=== PATIENT | male | born 1980 | race African-American/Black ===

== ENCOUNTER 2017-10-22 17:58 | Emergency (ER) | payer OTHER ==
[~2017-10-22] VITALS: Ht 172.7 cm; Wt 88.9 kg
[~2017-10-22 17:58] MED LIST: ALBUTEROL SULF8.5 GM INH; AUGMENTIN 500M500 MG PO; AZITHROMYCIN250 MG ORAL; AZITHROMYCIN250 MG PO; BACTRIM DS TAB1 EAC1 ORAL; BENADRYL25 MG ORAL; CIPRO500 MG PO; CLINDAMYCIN HC150 MG ORAL; COGENTIN2 MG PO; GEODON40 MG PO; HYDROCHLOROTHIA25 MG PO; IBUPROFEN600 MG ORAL; IBUPROFEN600 MG PO; IBUPROFEN800 MG ORAL; KEFLEX500 MG ORAL; METFORMIN HCL500 M1 ORAL; NAPROXEN250 MG ORAL; NORCO 5-325 TA1 EACH ORAL; PENICILLIN V P500 MG PO; PERCOCET 5-3251 EACH ORAL; PREDNISONE50 MG PO; TESSALON PERLE100 M2 ORAL; TRILEPTAL150 MG PO; UNK CHOLESTEROL MED; VICODIN 5-5001 EACH PO; ZITHROMAX250 MG ORAL; [UNRECOGNIZED DRUG - REMARK]
[2017-10-22] MEDS ORDERED: Dicyclomine HCl 10mg/5ml oral soln ORAL ONE (18:15)
[2017-10-22 18:45] VITALS: BP 151/79
[2017-10-22 18:56] LABS: BASOPHILS % (AUTO) 1.8 % (0.0-2.0); EOSINOPHILS % (AUTO) 1.6 % (0.0-3.0); HEMATOCRIT 44.7 % (42.0-52.0); HEMOGLOBIN 14.7 G/DL (14.2-18.0); LYMPHOCYTES % (AUTO) 38.5 % (20.0-45.0); MEAN CORPUSCULAR VOLUME 88 FL (80-99); MONOCYTES % (AUTO) 5.1 % (1.0-10.0); NEUTROPHILS % (AUTO) 53.1 % (45.0-75.0); PLATELET COUNT 242 K/UL (150-450); RED BLOOD COUNT 5.09 M/UL (4.70-6.10); RED CELL DISTRIBUTION WIDTH 11.8 % (11.6-14.8); WHITE BLOOD COUNT 7.1 K/UL (4.8-10.8)
[2017-10-22 18:59] LABS: ANION GAP 7 mmol/L (5-15); BLOOD UREA NITROGEN 7 mg/dL (7-18); CALCIUM 9.3 MG/DL (8.5-10.1); CARBON DIOXIDE 30 MMOL/L (21-32); CHLORIDE 102 MMOL/L (98-107); SODIUM 139 MMOL/L (136-145)
[2017-10-22 19:04] LABS: ALANINE AMINOTRANSFERASE 13 U/L (12-78); ALBUMIN 3.9 G/DL (3.4-5.0); ALBUMIN/GLOBULIN RATIO 1.2 (1.0-2.7); ALKALINE PHOSPHATASE 52 U/L (46-116); ASPARTATE AMINO TRANSFERASE 19 U/L (15-37); BILIRUBIN,TOTAL 0.2 MG/DL (0.2-1.0)
--- NOTE | 2017-10-22 20:02 | Emergency Room Report ---
History of Present Illness General Chief Complaint: General Complaint Source: Patient Present Illness HPI 37-year-old male presents to the emergency department complaining of 10 out of 10 in severity body aches, generalized abdominal pain, lethargy and feeling "dehydrated". Patient states he also has a history of carpal tunnel syndrome in the right hand and that he is experiencing exacerbation of his pain. Patient reports she was given splint in the past however he does not regularly use this as he is not aware . Patient denies subjective fevers, chills, nausea, vomiting, diarrhea or muscle spasms/cramps. Patient reports dark- colored urine with strong odor denies dysuria, hematuria or urinary frequency. Patient denies penile discharge, testicular pain or swelling. Allergies: Coded Allergies: No Known Allergies (Unverified , 06/17/12) Patient History Past Medical History: see triage record Past Surgical History: none Pertinent Family History: none Immunizations: UTD Reviewed Nursing Documentation: PMH: Agreed, PSxH: Agreed Nursing Documentation-PMH Hx Hypertension: Yes Hx Pacemaker: No Hx Asthma: Yes Hx COPD: No Hx Diabetes: Yes Hx Cancer: No Hx Gastrointestinal Problems: No Hx Dialysis: No History Of Psychiatric Problem: Yes - Bipolar; Schizophrenia Hx Neurological Problems: No Hx Cerebrovascular Accident: No Hx Seizures: No Review of Systems All Other Systems: negative except mentioned in HPI Physical Exam Vital Signs Date Time Temp Pulse Resp B/P (MAP) Pulse Ox O2 Delivery O2 Flow Rate FiO2 10/22/17 18:04 98.1 102 16 151/79 96 Room Air Sp02 EP Interpretation: reviewed, normal General Appearance: no apparent distress, alert, GCS 15, non-toxic Head: normocephalic, atraumatic ENT: hearing grossly normal, normal voice Neck: full range of motion Respiratory: lungs clear, normal breath sounds, no respiratory distress, speaking full sentences Cardiovascular #1: regular rate, rhythm, no edema Gastrointestinal: normal bowel sounds, non tender, soft, no peritonitis, no guarding, no rebound Rectal: deferred Genitourinary: normal inspection Musculoskeletal: back normal, gait/station normal, normal range of motion, tender - ttp to the right volar wrist, no obvious deformity, FROM. Neurologic: alert, oriented x3, responsive, motor strength/tone normal, sensory intact, normal gait, speech normal, grossly normal Psychiatric: judgement/insight normal Skin: normal color, no rash, warm/dry, well hydrated Lymphatic: no adenopathy Medical Decision Making PA Attestation Dr. Jimenez is my supervising physician whom pt. management has been discussed with. Diagnostic Impression: Primary Impression: Dehydration, mild Additional Impressions: Hx of carpal tunnel syndrome Marijuana use ER Course 37-year-old male presents to the emergency department complaining of 10 out of 10 in severity body aches, generalized abdominal pain, lethargy and feeling "dehydrated". Patient states he also has a history of carpal tunnel syndrome in the right hand and that he is experiencing exacerbation of his pain. Patient reports she was given splint in the past however he does not regularly use this as he is not aware days. Patient denies subjective fevers, chills, nausea, vomiting, diarrhea or muscle spasms/cramps. Patient reports dark- colored urine with strong odor denies dysuria, hematuria or urinary frequency. Patient denies penile discharge, testicular pain or swelling. Ddx considered but are not limited to GE, colitis, acute appy, SBO, Cyclical Vomiting secondary to THC. Vital signs: pt. is afebrile, H&PE are most consistent with viral syndrome , mild dehydration and drug seeking behavior, no evidence to suggest acute abdomen on physical exam. ORDERS: - 1 Liter NS Bolus -CBC, CMP: unremarkable -UDS:positive for THC ED INTERVENTIONS: -1000 NS iv hydration, -Zofran & Bentyl -I do not identify an emergent condition at this time. With current presentation , pt. is stable for close outpatient follow up and conservative treatment. D/ w pt. to return promptly to ED with worsening or new symptoms.- Pt. (and or responsible constitution party) verbalizes' understanding and agreement with proposed treatment plan.proposed treatment plan. DISCHARGE: At this time pt. is stable for d/c to home. Will provide printed patient care instructions, and any necessary prescriptions. Care plan and follow up instructions have been discussed with the patient prior to discharge. Labs Test 10/22/17 18:28 White Blood Count 7.1 K/UL (4.8-10.8) Red Blood Count 5.09 M/UL (4.70-6.10) Hemoglobin 14.7 G/DL (14.2-18.0) Hematocrit 44.7 % (42.0-52.0) Mean Corpuscular Volume 88 FL (80-99) Mean Corpuscular Hemoglobin 28.8 PG (27.0-31.0) Mean Corpuscular Hemoglobin Concent 32.8 G/DL (32.0-36.0) Red Cell Distribution Width 11.8 % (11.6-14.8) Platelet Count 242 K/UL (150-450) Mean Platelet Volume 6.8 FL (6.5-10.1) Neutrophils (%) (Auto) 53.1 % (45.0-75.0) Lymphocytes (%) (Auto) 38.5 % (20.0-45.0) Monocytes (%) (Auto) 5.1 % (1.0-10.0) Eosinophils (%) (Auto) 1.6 % (0.0-3.0) Basophils (%) (Auto) 1.8 % (0.0-2.0) Sodium Level 139 MMOL/L (136-145) Potassium Level 4.0 MMOL/L (3.5-5.1) Chloride Level 102 MMOL/L (98-107) Carbon Dioxide Level 30 MMOL/L (21-32) Anion Gap 7 mmol/L (5-15) Blood Urea Nitrogen 7 mg/dL (7-18) Creatinine 1.0 MG/DL (0.55-1.30) Estimat Glomerular Filtration Rate > 60 mL/min (>60) Glucose Level 83 MG/DL (74-106) Calcium Level 9.3 MG/DL (8.5-10.1) Total Bilirubin 0.2 MG/DL (0.2-1.0) Aspartate Amino Transf (AST/SGOT) 19 U/L (15-37) Alanine Aminotransferase (ALT/SGPT) 13 U/L (12-78) Alkaline Phosphatase 52 U/L (46-116) Total Protein 7.1 G/DL (6.4-8.2) Albumin 3.9 G/DL (3.4-5.0) Globulin 3.2 g/dL Albumin/Globulin Ratio 1.2 (1.0-2.7) Lipase 139 U/L (73-393) Urine Opiates Screen Negative (NEGATIVE) Urine Barbiturates Screen Negative (NEGATIVE) Phencyclidine (PCP) Screen Negative (NEGATIVE) Urine Amphetamines Screen Negative (NEGATIVE) Urine Benzodiazepines Screen Negative (NEGATIVE) Urine Cocaine Screen Negative (NEGATIVE) Urine Marijuana (THC) Screen Positive (NEGATIVE) Last Vital Signs Date Time Temp Pulse Resp B/P (MAP) Pulse Ox O2 Delivery O2 Flow Rate FiO2 10/22/17 18:45 98.1 16 151/79 96 Room Air 10/22/17 18:04 102 Disposition: HOME, SELF-CARE Condition: Stable Scripts Ibuprofen* (MOTRIN*) 600 Mg Tablet 600 MG ORAL THREE TIMES A DAY, #30 TAB 0 Refills Prov: Adrienne Jean Baptiste 10/22/17 Patient Instructions: Medical Screening Exam Additional Instructions: Take medications as directed. Follow up with a Primary Care Provider in 3-5 days, even if your symptoms have resolved. --Please review list of primary care clinics, if you do not already have a primary care provider Return sooner to ED if new symptoms occur, or current symptoms become worse. - Please note that this Emergency Department Report was dictated using [employer] construction inspector technology software, occasionally this can lead to erroneous entry secondary to interpretation by the dictation equipment. Adrienne Jean Baptiste Oct 22, 2017 20:02
[2017-10-22] MEDS ORDERED: IBUPROFEN600 MG ORAL (20:11)
[2017-10-22 20:30] VITALS: BP 151/79
== END 2017-10-22 20:30 | disposition home or self-care (01) ==
LOC: EMR 18:38
DX: E86.0 Dehydration (principal); F12.10 Cannabis abuse, uncomplicated; E11.9 Type 2 diabetes mellitus without complications; I10 Essential (primary) hypertension; F31.9 Bipolar disorder, unspecified; F20.9 Schizophrenia, unspecified; J45.909 Unspecified asthma, uncomplicated; G56.01 Carpal tunnel syndrome, right upper limb
CPT/HCPCS: 36415; 80053; 80307; 83690; 85025; 96361; 96374; 99284; J2405

== ENCOUNTER 2018-09-29 05:02 | Emergency (ER) | payer SELFPAY ==
[~2018-09-29] VITALS: Ht 172.7 cm; Wt 88.5 kg
--- NOTE | 2018-09-29 05:15 | NUR ---
ED Nurse Note: Patient walk in from home c/o runny nose and chest congestion for 3x days. Patient reports slight difficulty breathing. AO4. NAD. VSS. Denies pain. Attached to monitor.
[2018-09-29 05:25] VITALS: BP 133/97
[2018-09-29] MEDS ORDERED: PREDNISONE20 MG ORAL (05:30)
[2018-09-29] MEDS ORDERED: ALBUTEROL SULF8.5 GM INH (05:30)
[2018-09-29] MEDS ORDERED: Albuterol/Ipratropium 3ml neb HHN ONE (05:30)
--- NOTE | 2018-09-29 05:30 | Emergency Room Report ---
History of Present Illness General Chief Complaint: Flu Like Symptoms Source: Patient Present Illness HPI Is a 38-year-old male with a history of asthma but not on breathing treatment. He presents with a cough and congestion for last 3 days. Worse tonight. Worse with lying flat. Worse with coughing. Coughing is nonproductive in nature. [place] short of breath. Unable to sleep because of it. Allergies: Coded Allergies: No Known Allergies (Unverified , 06/17/12) Patient History Past Medical History: see triage record, old chart reviewed, asthma Past Surgical History: none Pertinent Family History: none Social History: Reports: smoking Immunizations: other Reviewed Nursing Documentation: PMH: Agreed; PSxH: Agreed Nursing Documentation-PMH Past Medical History: No History, Except For Hx Hypertension: Yes Hx Pacemaker: No Hx Asthma: Yes Hx COPD: No Hx Diabetes: Yes - borderline Hx Cancer: No Hx Gastrointestinal Problems: No Hx Dialysis: No History Of Psychiatric Problem: Yes - bipolar, schizophrenic Hx Neurological Problems: No Hx Cerebrovascular Accident: No Hx Seizures: No Review of Systems Eye: Denies: eye pain, blurred vision ENT: Denies: ear pain, nose congestion, throat swelling Respiratory: Reports: cough, shortness of breath Cardiovascular: Denies: chest pain, palpitations Gastrointestinal: Denies: abdominal pain, diarrhea, nausea, vomiting Musculoskeletal: Denies: back pain, joint pain Skin: Denies: rash Neurological: Denies: headache, numbness Endocrine: Denies: increased thirst, increased urine Hematologic/Lymphatic: Denies: easy bruising All Other Systems: negative except mentioned in HPI Physical Exam Vital Signs Date Time Temp Pulse Resp B/P (MAP) Pulse Ox O2 Delivery O2 Flow Rate FiO2 09/29/18 05:13 98.2 89 16 133/97 92 Room Air vitals with hypoxia Sp02 EP Interpretation: abnormal General Appearance: well appearing, no apparent distress, alert Head: normocephalic, atraumatic Eyes: bilateral eye PERRL, bilateral eye EOMI ENT: hearing grossly normal, normal pharynx Neck: full range of motion, supple, no meningismus Respiratory: chest non-tender, wheezing Cardiovascular #1: regular rate, rhythm, no murmur Gastrointestinal: normal bowel sounds, non tender, no mass, no organomegaly, no bruit, non-distended Musculoskeletal: back normal, gait/station normal, normal range of motion Psychiatric: mood/affect normal Skin: warm/dry Medical Decision Making Diagnostic Impression: Primary Impression: Upper respiratory infection Qualified Codes: J06.9 - Acute upper respiratory infection, unspecified Additional Impression: Asthma exacerbation Qualified Codes: J45.21 - Mild intermittent asthma with (acute) exacerbation ER Course Patient with a viral process or infection complicating his asthma. No evidence of ACS, PE, pneumonia, dissection to name a few. We'll discharge home. Last Vital Signs Date Time Temp Pulse Resp B/P (MAP) Pulse Ox O2 Delivery O2 Flow Rate FiO2 09/29/18 05:25 98.2 88 16 133/97 92 Room Air Status: improved Disposition: HOME, SELF-CARE Condition: Stable Scripts Prednisone* (PREDNISONE*) 20 Mg Tablet 40 MG ORAL DAILY, #8 TAB Prov: Amadeo Delarosa MD 09/29/18 Albuterol Sulfate* (ALBUTEROL SULFATE MDI*) 8.5 Gm Hfa.aer.ad 2 PUFF INH Q4H PRN for cough/wheezing, #1 EA 0 Refills Prov: Amadeo Delarosa MD 09/29/18 Referrals: NOT CHOSEN IPA/,REFERRING (PCP) Additional Instructions: Follow-up with your DrMax in 3-5 days. Stop smoking. Return if worse. Amadeo Delarosa MD Sep 29, 2018 05:30
--- NOTE | 2018-09-29 05:36 | NUR ---
ED Nurse Note: RT at bedside
--- NOTE | 2018-09-29 05:50 | NUR ---
ED Nurse Note: Patient cleared for discharge per ERMD. AO4. NAD. VSS. Patent given prescriptions and discharge instructions; veralized understanding. ID band removed. Patient ambulated out with all personal belongings with steady gait.
[2018-09-29 05:51] VITALS: BP 133/97
== END 2018-09-29 05:50 | disposition home or self-care (01) ==
LOC: EMR 05:28
DX: J06.9 Acute upper respiratory infection, unspecified (principal); J45.21 Mild intermittent asthma with (acute) exacerbation; I10 Essential (primary) hypertension; F31.9 Bipolar disorder, unspecified; F20.9 Schizophrenia, unspecified
CPT/HCPCS: 94640; 94664; 99284; J7512; J7620

== ENCOUNTER 2019-05-16 18:54 | Emergency (ER) | payer OTHER ==
[~2019-05-16] VITALS: Ht 167.6 cm; Wt 89.8 kg
[~2019-05-16 18:54] MED LIST changes: +PREDNISONE20 MG ORAL
[2019-05-16] MEDS ORDERED: UNOBMED (19:01)
[2019-05-16 19:05] VITALS: BP 148/99
--- NOTE | 2019-05-16 19:05 | NUR ---
ED Nurse Note: pt walked in to ED c/o a unknown insect bite to right forearm. Noted redness and swelling. pt states it is tender to touch and itchy at the same time. pt is alert x4. VSS
--- NOTE | 2019-05-16 19:22 | Emergency Room Report ---
History of Present Illness General Chief Complaint: Skin Rash/Abscess Source: Medical Record Present Illness HPI 39-year-old male with history of type 2 diabetes currently controlled with metformin here complaining of pruritus and pain in the right arm x2 days. Patient reports that he was walking in his neighborhood as he felt like something with his right arm. Patient denies nausea and vomiting however complains of chills denies fever. Denies shortness of breath, chest pain, palpitation. Rating the pain in the right arm 3 out of 10 with radiation to left fingers denies tingling and numbness. Has full range of motion. Has not taken medication for pruritus or pain. Cellulitis of the right forearm and right lateral arm noted secondary to insect bite most likely a spider bite. Slightly warm to touch. Patient denies anaphylaxis, chest pain, palpitation, and other associated symptoms. Allergies: Coded Allergies: No Known Allergies (Unverified , 06/17/12) Patient History Past Medical History: see triage record Past Surgical History: unable to obtain Pertinent Family History: none Immunizations: UTD Reviewed Nursing Documentation: PMH: Agreed; PSxH: Agreed Nursing Documentation-PMH Past Medical History: No History, Except For Hx Hypertension: Yes Hx Pacemaker: No Hx Asthma: Yes Hx COPD: No Hx Diabetes: Yes - borderline Hx Cancer: No Hx Gastrointestinal Problems: No Hx Dialysis: No Hx Neurological Problems: No Hx Cerebrovascular Accident: No Hx Seizures: No Review of Systems All Other Systems: negative except mentioned in HPI Physical Exam Vital Signs Date Time Temp Pulse Resp B/P (MAP) Pulse Ox O2 Delivery O2 Flow Rate FiO2 05/16/19 18:58 97.9 66 19 151/99 (116) 99 Room Air Sp02 EP Interpretation: reviewed, normal General Appearance: no apparent distress, alert, GCS 15, non-toxic Head: normocephalic, atraumatic Eyes: bilateral eye normal inspection, bilateral eye PERRL ENT: hearing grossly normal, normal pharynx, no angioedema, normal voice Neck: full range of motion, supple/symm/no masses Respiratory: chest non-tender, lungs clear, normal breath sounds, no wheezing, speaking full sentences Cardiovascular #1: regular rate, rhythm, no edema, no murmur Cardiovascular #2: 2+ radial (R), 2+ radial (L) Gastrointestinal: normal bowel sounds, non tender, soft, non-distended, no guarding, no rebound Rectal: deferred Genitourinary: normal inspection, no CVA tenderness Musculoskeletal: back normal, digits/nails normal, gait/station normal, no calf tenderness, swelling - Right plantar forearm and right lateral arm cellulitis Neurologic: alert, oriented x3, responsive, motor strength/tone normal, sensory intact, speech normal Psychiatric: judgement/insight normal, memory normal, mood/affect normal, no suicidal/homicidal ideation Skin: no rash, warm/dry, other - Cellulitis right arm and right forearm Lymphatic: no adenopathy Medical Decision Making PA Attestation Diagnosis and treatment plans were reviewed and discussed with my supervising physician Dr. Samuels Diagnostic Impression: Primary Impression: Cellulitis of right arm Additional Impression: Insect bite ER Course 39-year-old male with history of type 2 diabetes currently controlled with metformin here complaining of pruritus and pain in the right arm x2 days. Patient reports that he was walking in his neighborhood as he felt like something with his right arm. Patient denies nausea and vomiting however complains of chills denies fever. Denies shortness of breath, chest pain, palpitation. Rating the pain in the right arm 3 out of 10 with radiation to left fingers denies tingling and numbness. Has full range of motion. Has not taken medication for pruritus or pain. Cellulitis of the right forearm and right lateral arm noted secondary to insect bite most likely a spider bite. Slightly warm to touch. Patient denies anaphylaxis, chest pain, palpitation, and other associated symptoms. Ddx considered but are not limited to : Cellulitis,, superficial infection, abscess Vital signs: are WNL, pt. is afebrile H&PE are most consistent with: Cellulitis of right arm secondary to insect bite ORDERS: Keflex, ibuprofen, Benadryl, hydrocortisone cream ED INTERVENTIONS: Keflex, Claritin DISCHARGE: At this time pt. is stable for d/c to home. Will provide printed patient care instructions, and any necessary prescriptions. Care plan and follow up instructions have been discussed with the patient prior to discharge. Patient to follow-up with her primary care provider worsening symptoms, anaphylaxis, fever and chills return to the emergency room Last Vital Signs Date Time Temp Pulse Resp B/P (MAP) Pulse Ox O2 Delivery O2 Flow Rate FiO2 05/16/19 18:58 97.9 66 19 151/99 (116) 99 Room Air Disposition: HOME, SELF-CARE Condition: Stable Scripts Diphenhydramine Hcl* (BENADRYL*) 25 Mg Capsule 25 MG ORAL Q6H PRN for Itching, #21 CAP Prov: Palomo Hansen 05/16/19 Ibuprofen* (MOTRIN*) 600 Mg Tablet 600 MG ORAL Q8H PRN for For Pain, #30 TAB 0 Refills Prov: Palomo Hansen 05/16/19 Hydrocortisone/Aloe Vera 1%* (HYDROCORTISONE-ALOE 1% CREAM*) Y Cr 1 APPLIC TOPIC Q6H PRN for Itching, #30 GM Prov: Palomo Hansen 05/16/19 Cephalexin* (KEFLEX*) 500 Mg Capsule 500 MG ORAL EVERY 6 HOURS for 7 Days, #28 CAP Prov: Palomo Hansen 05/16/19 Patient Instructions: Cellulitis, [id number], Insect Bite, [id number] Additional Instructions: Take medication as directed follow-up with your primary care provider if worsening symptoms return to the emergency room Palomo Hansen May 16, 2019 19:22
[2019-05-16] MEDS ORDERED: IBUPROFEN600 MG ORAL (19:23)
[2019-05-16] MEDS ORDERED: CEPHALEXIN500 MG ORAL (19:23)
[2019-05-16] MEDS ORDERED: BENADRYL25 MG ORAL (19:23)
[2019-05-16] MEDS ORDERED: HYDROCORTISONE-30 GM TOPIC (19:23)
[2019-05-16 19:30] VITALS: BP 144/86
[2019-05-16] MEDS ORDERED: Cephalexin 250mg/5ml Susp 100mL Bottle ORAL ONE (19:30)
--- NOTE | 2019-05-16 19:30 | NUR ---
ER DISCHARGE NOTE: Patient is cleared to be discharged per ERMD, pt is aox4, on room air, with stable vital signs. pt was given dc and prescription instructions, pt was able to verbalize understanding, pt id band removed without complications. pt is able to ambulate with steady gait. pt took all belongings.
== END 2019-05-16 19:30 | disposition home or self-care (01) ==
LOC: EMR 19:18
DX: L03.113 Cellulitis of right upper limb (principal); S40.861A Insect bite (nonvenomous) of right upper arm, initial encounter; J45.909 Unspecified asthma, uncomplicated; I10 Essential (primary) hypertension; Z95.0 Presence of cardiac pacemaker; E11.9 Type 2 diabetes mellitus without complications; Z79.84 Long term (current) use of oral hypoglycemic drugs; W57.XXXA Bitten or stung by nonvenomous insect and other nonvenomous arthropods, initial encounter; Y92.9 Unspecified place or not applicable
CPT/HCPCS: 99282

== ENCOUNTER 2019-07-23 11:54 | Emergency (ER) | payer OTHER ==
[~2019-07-23] VITALS: Ht 167.6 cm; Wt 90.7 kg
[~2019-07-23 11:54] MED LIST changes: +CEPHALEXIN500 MG ORAL; +HYDROCORTISONE-30 GM TOPIC; +UNOBMED
[2019-07-23 11:59] VITALS: BP 134/89
[2019-07-23] MEDS ORDERED: Lidocaine 1% MPF 10mg/ml 5ml INJ ONE (12:15)
[2019-07-23 12:36] LABS: APPEARANCE,URINE CLEAR; BILIRUBIN, URINE NEGATIVE (NEGATIVE); COLOR,URINE YELLOW; GLUCOSE, URINE (UA) NEGATIVE (NEGATIVE); KETONES,URINE NEGATIVE (NEGATIVE); LEUKOCYTE ESTERASE ,URINE 1+ (NEGATIVE); NITRITE,URINE NEGATIVE (NEGATIVE); PH,URINE 7 (4.5-8.0); PROTEIN,URINE NEGATIVE (NEGATIVE); UROBILINOGEN,URINE NORMAL MG/DL (0.0-1.0)
--- NOTE | 2019-07-23 12:36 | Emergency Room Report ---
History of Present Illness General Chief Complaint: Male Urogenital Problems Source: Patient Present Illness HPI 39-year-old male with no significant past medical history here complaining of over a couple months of a white penile discharge with pruritus. Patient reports that he was sexually active with a random sexual partner and does not know whether she was positive for any sexually transmitted diseases. Denies urinary frequency, dysuria, hematuria, fever and chills, pubic pain. Denies scrotal pain. Has not taken medication for symptom relief. Reports that also he has a same discharge coming from the anal region occasionally and did receive anal intercourse. Patient is in no distress. Denies other associated symptoms such as chest pain, shortness of breath, palpitation, fever and chills. Allergies: Coded Allergies: No Known Allergies (Unverified , 06/17/12) Patient History Past Medical History: see triage record Past Surgical History: unable to obtain Pertinent Family History: none Immunizations: UTD Reviewed Nursing Documentation: PMH: Agreed; PSxH: Agreed Nursing Documentation-PMH Hx Hypertension: Yes Hx Pacemaker: No Hx Asthma: Yes Hx COPD: No Hx Diabetes: Yes - borderline Hx Cancer: No Hx Gastrointestinal Problems: No Hx Dialysis: No History Of Psychiatric Problem: Yes Hx Neurological Problems: No Hx Cerebrovascular Accident: No Hx Seizures: No Review of Systems All Other Systems: negative except mentioned in HPI Physical Exam Vital Signs Date Time Temp Pulse Resp B/P (MAP) Pulse Ox O2 Delivery O2 Flow Rate FiO2 07/23/19 11:59 98.1 93 19 134/89 (104) 95 Room Air Sp02 EP Interpretation: reviewed, normal General Appearance: no apparent distress, alert, GCS 15, non-toxic Head: normocephalic, atraumatic Eyes: bilateral eye normal inspection, bilateral eye PERRL ENT: hearing grossly normal, normal pharynx, no angioedema, normal voice Neck: full range of motion, supple/symm/no masses Respiratory: chest non-tender, lungs clear, normal breath sounds, no rhonchi, speaking full sentences Cardiovascular #1: regular rate, rhythm, no edema, no murmur Gastrointestinal: non tender, soft Rectal: deferred Genitourinary: normal inspection, no CVA tenderness Musculoskeletal: back normal, digits/nails normal Neurologic: alert, oriented x3, responsive, motor strength/tone normal, sensory intact, speech normal Psychiatric: judgement/insight normal, memory normal, mood/affect normal, no suicidal/homicidal ideation Skin: no rash Lymphatic: no adenopathy Medical Decision Making PA Attestation All diagnoses and treatment plans were reviewed and discussed with my supervising physician Dr. Alexander Diagnostic Impression: Primary Impression: Penile discharge ER Course 39-year-old male with no significant past medical history here complaining of over a couple months of a white penile discharge with pruritus. Patient reports that he was sexually active with a random sexual partner and does not know whether she was positive for any sexually transmitted diseases. Denies urinary frequency, dysuria, hematuria, fever and chills, pubic pain. Denies scrotal pain. Has not taken medication for symptom relief. Reports that also he has a same discharge coming from the anal region occasionally and did receive anal intercourse. Patient is in no distress. Denies other associated symptoms such as chest pain, shortness of breath, palpitation, fever and chills. Ddx considered but are not limited to: UTI, chlamydia, gonorrhea, fungal infection Vital signs: are WNL, pt. is afebrile H&PE are most consistent with: Penile discharge due to STD exposure ORDERS: UA, fluconazole, doxycycline ED INTERVENTIONS: Rocephin DISCHARGE: At this time pt. is stable for d/c to home. Will provide printed patient care instructions, and any necessary prescriptions. Care plan and follow up instructions have been discussed with the patient prior to discharge. Take medication as directed, follow-up with your primary care physician. If symptoms continue especially anal discharge you need to be swabbed. Patient agrees with prophylactic treatment for chlamydia, gonorrhea, and fungal infection Last Vital Signs Date Time Temp Pulse Resp B/P (MAP) Pulse Ox O2 Delivery O2 Flow Rate FiO2 07/23/19 11:59 98.1 93 19 134/89 (104) 95 Room Air Disposition: HOME, SELF-CARE Condition: Stable Scripts Doxycycline Hyclate (DOXYCYCLINE HYCLATE) 100 Mg Tablet 100 MG PO BID for 7 Days, #14 TAB Prov: Palomo Hansen 07/23/19 Fluconazole (FLUCONAZOLE) 100 Mg Tablet 100 MG ORAL DAILY for 7 Days, #7 TAB 0 Refills Prov: Palomo Hansen 07/23/19 Patient Instructions: Balanitis, Chlamydia, Male, Gonorrhea Additional Instructions: Take medication as directed, follow with your primary care provider for further testing. CAD if worsening symptoms return to the emergency room Palomo Hansen Jul 23, 2019 12:36
--- NOTE | 2019-07-23 12:37 | NUR ---
ED Nurse Note: Pt. AAOx4. Ambulatory. Pt. walked in to ER. Pt. stated that he has been having whitish penile discharge(whitish) for the last 3 months and admitted that he received an oral sex from a random girl within the last 3 months. c/o of itchiness as well
[2019-07-23] MEDS ORDERED: DOXYCYCLINE HY100 M6 PO (12:40)
[2019-07-23] MEDS ORDERED: FLUCONAZOLE100 MG ORAL (12:40)
[2019-07-23 12:46] VITALS: BP 127/80
== END 2019-07-23 12:47 | disposition home or self-care (01) ==
LOC: EMR 12:45
DX: R36.9 Urethral discharge, unspecified (principal); I10 Essential (primary) hypertension; J45.909 Unspecified asthma, uncomplicated; R73.03 Prediabetes
CPT/HCPCS: 81001; 96372; 96374; J0696; Z7502; 99284

== ENCOUNTER 2019-09-06 18:16 | Emergency (ER) | payer OTHER ==
[~2019-09-06] VITALS: Ht 167.6 cm; Wt 86.2 kg
[~2019-09-06 18:16] MED LIST changes: +DOXYCYCLINE HY100 M6 PO; +FLUCONAZOLE100 MG ORAL
[2019-09-06 18:31] VITALS: BP 135/88
[2019-09-06] MEDS ORDERED: AMOXICILLIN500 MG ORAL (18:33)
--- NOTE | 2019-09-06 18:33 | NUR ---
ED Nurse Note: pt walked in c/o throat pain x 4 days ermd eval done awaiting orders.
--- NOTE | 2019-09-06 18:35 | NUR ---
ED Nurse Note: no nsg orders.
--- NOTE | 2019-09-06 18:35 | NUR ---
ED Nurse Note: Pt cleared by health care Provider for discharge. DC instructions/prescription was given and explained to pt and verbalized understanding of teachings. All medical deviecs such as ID band removed. Pt is AAO x4, ambulatory and left with all personal belongings.
[2019-09-06 18:36] VITALS: BP 135/88
--- NOTE | 2019-09-06 18:43 | Emergency Room Report ---
History of Present Illness General Chief Complaint: Sore Throat Source: Patient Present Illness HPI 39 year old complaining of sore throat x4 days. Pain is 7/10, painful to swallow. No aggravating or relieving factors. Denies fever, cough, shortness of breath, stuffy nose, vomiting, diarrhea, abdominal pain. Good appetite. No sick contacts, no recent travel. Took DayQuil without relief. Allergies: Coded Allergies: No Known Allergies (Unverified , 06/17/12) Patient History Past Medical History: DM, HTN, psych hx - bipolar, schizophrenia, other - hyperlipidemia Past Surgical History: none Social History: Reports: smoking - marijuana Nursing Documentation-[facility] Past Medical History: No History, Except For Hx Hypertension: Yes Hx Pacemaker: No Hx Asthma: Yes Hx COPD: No Hx Diabetes: Yes - borderline Hx Cancer: No Hx Gastrointestinal Problems: No Hx Dialysis: No Hx Neurological Problems: No Hx Cerebrovascular Accident: No Hx Seizures: No Review of Systems All Other Systems: negative except mentioned in HPI Physical Exam Vital Signs Date Time Temp Pulse Resp B/P (MAP) Pulse Ox O2 Delivery O2 Flow Rate FiO2 09/06/19 18:20 98.4 105 18 135/88 (104) 98 Room Air Sp02 EP Interpretation: reviewed, normal General Appearance: no apparent distress, alert, GCS 15, non-toxic ENT: normal voice, TMs + canals normal, pharyngeal erythema - , no RESPONDER Respiratory: chest non-tender, lungs clear, normal breath sounds, speaking full sentences Cardiovascular #1: regular rate, rhythm, no edema Musculoskeletal: back normal, normal range of motion, gait/station normal Neurologic: alert, motor strength/tone normal, oriented x3, sensory intact, responsive, speech normal Skin: no rash, warm/dry Medical Decision Making PA Attestation This patient was seen under the direct supervision of Dr. Alexander, who directed all aspects of care and diagnostic interpretation. Diagnostic Impression: Primary Impression: Pharyngitis, acute ER Course ED course HPI: 39 year old complaining of sore throat x4 days. Pain is 7/10, painful to swallow. No aggravating or relieving factors. Denies fever, cough, shortness of breath, stuffy nose, vomiting, diarrhea, abdominal pain. Good appetite. No sick contacts, no recent travel. Took DayQuil without relief. HPI & PE consistent with: Pharyngitis Orders/ Interventions: None. Patient is well-appearing, speaking in full sentences without respiratory distress. No evidence of peritonsillar abscess. Normal voice. Disposition: Take amoxicillin as prescribed. Treat with otc analgesic of choice (ibuprofen or acetaminophen every 6 hrs) as needed for pain or fever 100.4F. Encouraged increased fluid intake & rest, avoid strenuous exercise. Diet modifications: avoid greasy, spicy foods, and dairy products until better. Take medications as directed. Instructed on how to take meds and possible side effects of medication Gargle w/ warm salt water for throat pain, eat soft, easy to swallow foods. At this time pt. is stable for d/c to home. Will provide printed patient care instructions, and any necessary prescriptions. Care plan and follow up instructions have been discussed with the patient prior to discharge. Please note that this Emergency Department Report was dictated using [employer] development technician technology software, occasionally this can lead to erroneous entry secondary to interpretation by the dictation equipment. Last Vital Signs Date Time Temp Pulse Resp B/P (MAP) Pulse Ox O2 Delivery O2 Flow Rate FiO2 09/06/19 18:36 98.4 18 135/88 98 Room Air 09/06/19 18:20 105 Disposition: HOME, SELF-CARE Condition: Stable Scripts Amoxicillin* (AMOXIL*) 500 Mg Capsule 500 MG ORAL EVERY 8 HOURS for 10 Days, #30 CAP Prov: Thania Mason 09/06/19 Referrals: [facility],REFERRING (PCP) Patient Instructions: Pharyngitis, [id number] Additional Instructions: Take medication as Rx. Followup with PCP in 2 days or return to ED if worsening symptoms, new symptoms, or sudden change in condition. Thania Mason Sep 06, 2019 18:43
== END 2019-09-06 18:40 | disposition home or self-care (01) ==
LOC: EMR 18:31
DX: J02.9 Acute pharyngitis, unspecified (principal); I10 Essential (primary) hypertension; J45.909 Unspecified asthma, uncomplicated; R73.03 Prediabetes
CPT/HCPCS: 99282

== ENCOUNTER 2019-09-09 17:26 | Emergency (ER) | payer OTHER ==
[~2019-09-09] VITALS: Ht 167.6 cm; Wt 86.2 kg
[~2019-09-09 17:26] MED LIST changes: +AMOXICILLIN500 MG ORAL
[2019-09-09 17:42] VITALS: BP 113/78
--- NOTE | 2019-09-09 18:06 | Emergency Room Report ---
History of Present Illness General Chief Complaint: Sore Throat Source: Patient Present Illness HPI 39-year-old male with no significant past medical history here complaining of no improvement of sore throat x4 days. Patient was here at [facility] 2 days ago and was prescribed amoxicillin. Patient reports that he started taking it yesterday however does not feel like it is helping his symptoms. Denies drooling, fever and chills, cough and congestion at this time. Reports that has not been taking anything for pain. Rating pain 10 out of 10. Bilateral tonsils swelling and anterior cervical adenopathy noted. Patient also complains of 10 months of penile discharge whenever he is making bowel movement. Patient has been here for the same complaint before multiple times. Patient reports that he finally follow-up with his primary care provider recently, had blood work done and has a follow-up appointment with his primary care provider in 2 weeks. Patient denies any new sexual encounter with new partner. At this time I discussed with the patient that it is best to wait to follow-up with her primary care provider as this is a chronic issue and possible referral to specialist needed. Allergies: Coded Allergies: No Known Allergies (Unverified , 06/17/12) Patient History Past Medical History: see triage record Past Surgical History: unable to obtain Pertinent Family History: none Immunizations: UTD Reviewed Nursing Documentation: PMH: Agreed; PSxH: Agreed Nursing Documentation-PMH Past Medical History: No History, Except For Hx Hypertension: Yes Hx Pacemaker: No Hx Asthma: Yes Hx COPD: No Hx Diabetes: Yes Hx Cancer: No Hx Gastrointestinal Problems: No Hx Dialysis: No Hx Neurological Problems: No Hx Cerebrovascular Accident: No Hx Seizures: No Review of Systems All Other Systems: negative except mentioned in HPI Physical Exam Vital Signs Date Time Temp Pulse Resp B/P (MAP) Pulse Ox O2 Delivery O2 Flow Rate FiO2 09/09/19 17:30 98.4 95 16 120/88 (99) 98 Room Air Sp02 EP Interpretation: reviewed, normal General Appearance: no apparent distress, alert, GCS 15, non-toxic Head: normocephalic, atraumatic Eyes: bilateral eye normal inspection, bilateral eye PERRL ENT: hearing grossly normal, no angioedema, tonsillar swelling, pharyngeal erythema Neck: full range of motion, supple/symm/no masses, other - Anterior cervical lymphadenopathy Respiratory: chest non-tender, lungs clear, normal breath sounds, no rhonchi, no wheezing, speaking full sentences Cardiovascular #1: regular rate, rhythm, no edema, no murmur, normal capillary refill Gastrointestinal: soft, no mass Genitourinary: no CVA tenderness Musculoskeletal: normal range of motion Neurologic: alert, motor strength/tone normal, oriented x3, sensory intact, responsive, speech normal Psychiatric: judgement/insight normal, memory normal, mood/affect normal, no suicidal/homicidal ideation Skin: no rash Lymphatic: adenopathy - Anterior cervical Medical Decision Making PA Attestation All my diagnosis and treatment plans were reviewed ad discussed with my supervising physician Dr. Sorto Diagnostic Impression: Primary Impression: Strep pharyngitis Additional Impression: Penile discharge ER Course 39-year-old male with no significant past medical history here complaining of no improvement of sore throat x4 days. Patient was here at [facility] 2 days ago and was prescribed amoxicillin. Patient reports that he started taking it yesterday however does not feel like it is helping his symptoms. Denies drooling, fever and chills, cough and congestion at this time. Reports that has not been taking anything for pain. Rating pain 10 out of 10. Bilateral tonsils swelling and anterior cervical adenopathy noted. Patient also complains of 10 months of penile discharge whenever he is making bowel movement. Patient has been here for the same complaint before multiple times. Patient reports that he finally follow-up with his primary care provider recently, had blood work done and has a follow-up appointment with his primary care provider in 2 weeks. Patient denies any new sexual encounter with new partner. At this time I discussed with the patient that it is best to wait to follow-up with her primary care provider as this is a chronic issue and possible referral to specialist needed. Ddx considered but are not limited to: strep pharyngitis, URI, tonsillitis, peritonsillar abscess, influneza Vital signs: are WNL, pt. is afebrile H&PE are most consistent with: Strep pharyngitis second encounter, chronic penile discharge ORDERS: Prednisone, Motrin ED INTERVENTIONS: None required at this time. DISCHARGE: At this time pt. is stable for d/c to home. Will provide printed patient care instructions, and any necessary prescriptions. Care plan and follow up instructions have been discussed with the patient prior to discharge. Patient to follow-up with her primary care provider, also finish amoxicillin that was prescribed to him 2 days ago. Patient is concerned of having STD in the mouth, advised patient to finish the medication however if still symptomatic her primary care physician do a throat culture if any suspicion for sexually transmitted diseases in the throat. Last Vital Signs Date Time Temp Pulse Resp B/P (MAP) Pulse Ox O2 Delivery O2 Flow Rate FiO2 09/09/19 17:42 98.6 19 113/78 99 Room Air 09/09/19 17:30 95 Disposition: HOME, SELF-CARE Condition: Stable Scripts Ibuprofen* (MOTRIN*) 600 Mg Tablet 600 MG ORAL THREE TIMES A DAY, #30 TAB 0 Refills Prov: Palomo Hansen 09/09/19 Prednisone* (PREDNISONE*) 10 Mg Tablet 10 MG ORAL BID for 5 Days, #10 TAB 0 Refills Prov: Palomo Hansen 09/09/19 Patient Instructions: Strep Throat Additional Instructions: Finished antibiotics that were given to you 2 days ago, follow-up with your primary care provider regarding your repeated penile discharge as you have a pending lab results an appointment with primary doctor. You have been here repeatedly for the same concern and multiple antibiotics and antifungals have been given and it is best to follow-up with a primary care at this time possible referral to a specialist. Palomo Hansen Sep 09, 2019 18:06
[2019-09-09] MEDS ORDERED: PREDNISONE10 MG ORAL (18:07)
[2019-09-09] MEDS ORDERED: IBUPROFEN600 MG ORAL (18:07)
[2019-09-09 18:12] VITALS: BP 120/78
== END 2019-09-09 18:12 | disposition home or self-care (01) ==
LOC: EMR 18:00
DX: J02.0 Streptococcal pharyngitis (principal); R36.9 Urethral discharge, unspecified; I10 Essential (primary) hypertension; E11.9 Type 2 diabetes mellitus without complications
CPT/HCPCS: 99282

== ENCOUNTER 2019-11-15 18:48 | Emergency (ER) | payer OTHER ==
[~2019-11-15] VITALS: Ht 167.6 cm; Wt 81.6 kg
[~2019-11-15 18:48] MED LIST changes: +PREDNISONE10 MG ORAL
--- NOTE | 2019-11-15 19:15 | NUR ---
ED Nurse Note: PT WALKED IN TO ED FROM HOME C/O ASTHMA EXACERBATION X2DAYS. PT STATES MILD CP AND SOB. 96% RA AT BEDSIDE. VSS, NAD. WILL CONTINUE TO MONITOR PATIENT.
[2019-11-15] MEDS ORDERED: Albuterol/Ipratropium 3ml neb HHN SCH (19:30)
--- NOTE | 2019-11-15 19:35 | NUR ---
ED Nurse Note: xr at bedside
[2019-11-15 19:41] VITALS: BP 132/88
--- NOTE | 2019-11-15 19:46 | NUR ---
ED Nurse Note: rt at bedside with breathing tx
--- NOTE | 2019-11-15 19:53 | Diagnostic Imaging Report ---
EXAM: XR Chest, 1 View CLINICAL HISTORY: SOB TECHNIQUE: Frontal view of the chest. COMPARISON: No relevant prior studies available. FINDINGS: Lungs: Unremarkable. No consolidation. Pleural space: No pleural effusion. No pneumothorax. Heart: Unremarkable. No cardiomegaly. IMPRESSION: No acute cardiopulmonary abnormality.
--- NOTE | 2019-11-15 20:35 | NUR ---
ED Nurse Note: BLOOD DRAWN AND SENT TO LAB
[2019-11-15 21:00] LABS: BASOPHILS % (AUTO) 2.8 % (0.0-2.0); EOSINOPHILS % (AUTO) 0.4 % (0.0-3.0); HEMATOCRIT 41.5 % (42.0-52.0); HEMOGLOBIN 14.2 G/DL (14.2-18.0); LYMPHOCYTES % (AUTO) 18.2 % (20.0-45.0); MEAN CORPUSCULAR VOLUME 86 FL (80-99); MONOCYTES % (AUTO) 5.6 % (1.0-10.0); PLATELET COUNT 196 K/UL (150-450); RED BLOOD COUNT 4.85 M/UL (4.70-6.10); RED CELL DISTRIBUTION WIDTH 11.9 % (11.6-14.8); WHITE BLOOD COUNT 8.5 K/UL (4.8-10.8)
[2019-11-15 21:04] LABS: ANION GAP 16 mmol/L (5-15); BLOOD UREA NITROGEN 12 mg/dL (7-18); CALCIUM 9.3 MG/DL (8.5-10.1); CARBON DIOXIDE 25 MMOL/L (21-32); CHLORIDE 101 MMOL/L (98-107); POTASSIUM 3.5 MMOL/L (3.5-5.1); SODIUM 142 MMOL/L (136-145)
[2019-11-15 21:10] LABS: ALANINE AMINOTRANSFERASE 61 U/L (12-78); ALBUMIN 3.9 G/DL (3.4-5.0); ALBUMIN/GLOBULIN RATIO 1.1 (1.0-2.7); ALKALINE PHOSPHATASE 58 U/L (46-116); ASPARTATE AMINO TRANSFERASE 26 U/L (15-37); BILIRUBIN,TOTAL 0.3 MG/DL (0.2-1.0)
[2019-11-15 21:43] LABS: APPEARANCE,URINE CLEAR; BILIRUBIN, URINE NEGATIVE (NEGATIVE); COLOR,URINE PALE YELLOW; GLUCOSE, URINE (UA) NEGATIVE (NEGATIVE); KETONES,URINE NEGATIVE (NEGATIVE); LEUKOCYTE ESTERASE ,URINE NEGATIVE (NEGATIVE); NITRITE,URINE NEGATIVE (NEGATIVE); PH,URINE 8 (4.5-8.0); PROTEIN,URINE NEGATIVE (NEGATIVE); UROBILINOGEN,URINE NORMAL MG/DL (0.0-1.0)
[2019-11-15] MEDS ORDERED: LORazepam 1mg tab ORAL ONE (22:00)
--- NOTE | 2019-11-15 22:31 | Emergency Room Report ---
History of Present Illness General Chief Complaint: Asthma Source: Patient (Palomo Hansen) Present Illness HPI 39-year-old male with history of asthma and heavy tobacco smoker marijuana user here complaining of asthma exacerbation. Patient has been here multiple times in the past for similar reason. Appears to be tachycardic at this time. Denies any other drug use. Denies alcohol intake. Complains of fever and chills. Denies recent travel. Complains of cough and congestion. Has not taken medication for symptom relief. Does not use his albuterol as needed. Denies chest pain chest pain radiation. Denies pleuritic chest pain. Denies leg swelling. Otherwise stable. Denies abdominal pain, nausea vomiting (Palomo Hansen) Allergies: Coded Allergies: No Known Allergies (Unverified , 06/17/12) Patient History Past Medical History: see triage record Past Surgical History: none Pertinent Family History: none Social History: Reports: smoking, drug use - Marijuana Immunizations: UTD Reviewed Nursing Documentation: PMH: Agreed; PSxH: Agreed (Palomo Hansen) Nursing Documentation-PMH Past Medical History: No History, Except For Hx Hypertension: Yes Hx Pacemaker: No Hx Asthma: Yes Hx COPD: No Hx Diabetes: Yes Hx Cancer: No Hx Gastrointestinal Problems: No Hx Dialysis: No Hx Neurological Problems: No Hx Cerebrovascular Accident: No Hx Seizures: No (Palomo Hansen) Review of Systems All Other Systems: negative except mentioned in HPI (Palomo Hansen) Physical Exam Vital Signs Date Time Temp Pulse Resp B/P (MAP) Pulse Ox O2 Delivery O2 Flow Rate FiO2 11/15/19 19:10 99.3 115 20 129/90 (103) 94 Room Air 11/15/19 20:58 97 Sp02 EP Interpretation: abnormal - 94% O2 sat General Appearance: alert, GCS 15, non-toxic, mild distress Head: normocephalic, atraumatic Eyes: bilateral eye normal inspection, bilateral eye PERRL ENT: hearing grossly normal, normal pharynx, no angioedema, normal voice Neck: full range of motion, supple, supple/symm/no masses Respiratory: chest non-tender, no rhonchi, no respiratory distress, no retraction, no accessory muscle use, speaking full sentences, wheezing - Diffuse wheezing Cardiovascular #1: regular rate, rhythm, no edema, no murmur Cardiovascular #2: 2+ carotid (R), 2+ carotid (L), 2+ radial (R), 2+ radial (L) Gastrointestinal: normal bowel sounds, non tender, soft, non-distended, no guarding, no rebound Rectal: deferred Genitourinary: no CVA tenderness Musculoskeletal: back normal, normal range of motion, no calf tenderness, gait/ station normal, Hardeep's Sign negative, non-tender Neurologic: alert, motor strength/tone normal, oriented x3, sensory intact, responsive, speech normal Psychiatric: judgement/insight normal, memory normal, mood/affect normal, no suicidal/homicidal ideation Skin: no rash Lymphatic: no adenopathy (Palomo Hansen) Medical Decision Making PA Attestation All diagnoses and treatment plans were reviewed and discussed with my supervising physician Dr. Scruggs (Palomo Hansen) Diagnostic Impression: Primary Impression: Asthma attack Additional Impression: Tachycardia ER Course 39-year-old male with history of asthma and heavy tobacco smoker marijuana user here complaining of asthma exacerbation. Patient has been here multiple times in the past for similar reason. Appears to be tachycardic at this time. Denies any other drug use. Denies alcohol intake. Complains of fever and chills. Denies recent travel. Complains of cough and congestion. Has not taken medication for symptom relief. Does not use his albuterol as needed. Denies chest pain chest pain radiation. Denies pleuritic chest pain. Denies leg swelling. Otherwise stable. Denies abdominal pain, nausea vomiting Ddx considered but are not limited to: OH, Angina, COPD, GERD, asthma exacerbation, tachycardia Vital signs: are WNL, pt. is afebrile H&PE are most consistent with asthma exacerbation and tachycardia ORDERS: EKG, Chest XR, CMP, UA, tox screen, troponin, BMP ED INTERVENTIONS: Prednisone p.o., 3 treatments of albuterol ipratropium nebulizer, 2 L of NS bolus, 1 g of p.o. Ativan I spoke to the patient and gave him the option of staying in the ER for observation due to elevated heart rate however patient decided to go home and follow with primary doctor. Patient understand that he should not continue to smoke tobacco as well as marijuana use however reports that is going to be difficult for him. Advised to return to the emergency room with chest pain and chest pain worsening. (Palomo Hansen) EKG Diagnostic Results Rate: tachycardiac Rhythm: other - tachy ST Segments: no acute changes Other Impression No acute ST changes (Palomo Hansen) Chest X-Ray Diagnostic Results Chest X-Ray Diagnostic Results : Chest X-Ray Ordered: Yes # of Views/Limited/Complete: 1 View Indication: Shortness of Breath EP Interpretation: Yes PA Xray: Interpretation reviewed, by supervising MD, and agrees with findings. Interpretation: no consolidation, no effusion, no pneumothorax Impression: No acute disease Electronically Signed by: Palomo Ramirez PA-C (Palomo Hansen) Chest X-Ray Diagnostic Results : Electronically Signed by: Tri Rao documentation of Xray reviewed by me and is accurate, Minh Scruggs MD (Minh Scruggs MD) Last Vital Signs Date Time Temp Pulse Resp B/P (MAP) Pulse Ox O2 Delivery O2 Flow Rate FiO2 11/15/19 20:58 118 22 Room Air 97 11/15/19 20:15 100 11/15/19 19:41 99.1 132/88 Status: improved (Palomo Hansen) Disposition: HOME, SELF-CARE Condition: Stable Scripts Nicotine (NICOTINE PATCH) 1 Each Patch.dysq 1 EACH TD DAILY, #20 PATCH Prov: Palomo Hansen 11/15/19 Prednisone* (PREDNISONE*) 20 Mg Tablet 40 MG ORAL DAILY for 5 Days, #10 TAB Prov: Palomo Hansen 11/15/19 Albuterol Sulfate (VENTOLIN HFA) 18 Gm Hfa.aer.ad 2 PUFFS INH EVERY 6 HOURS, #18 GM 0 Refills Prov: Palomo Hansen 11/15/19 Patient Instructions: Asthma, Adult Additional Instructions: Patient was educated on smoking cessation, follow-up with primary doctor. If worsening symptoms return to the emergency room Palomo Hansen Nov 15, 2019 22:31 Minh Scruggs MD Nov 18, 2019 05:00
[2019-11-15] MEDS ORDERED: NICOTINE PATCH1 EAC5 TD (22:43)
[2019-11-15] MEDS ORDERED: VENTOLIN HFA18 GM INH (22:43)
[2019-11-15] MEDS ORDERED: PREDNISONE20 MG ORAL (22:43)
[2019-11-15 22:50] VITALS: BP 129/86
--- NOTE | 2019-11-15 22:50 | NUR ---
ER DISCHARGE NOTE: Patient is cleared to be discharged per ERMD, pt is aox4, on room air, with stable vital signs. pt was given dc and prescription instructions, pt was able to verbalize understanding, pt id band and iv site removed without complications. pt is able to ambulate with steady gait. pt took all belongings.
== END 2019-11-15 22:50 | disposition home or self-care (01) ==
LOC: EMR 19:30
DX: J45.901 Unspecified asthma with (acute) exacerbation (principal); R00.0 Tachycardia, unspecified; F17.200 Nicotine dependence, unspecified, uncomplicated; F12.90 Cannabis use, unspecified, uncomplicated; I10 Essential (primary) hypertension; E11.9 Type 2 diabetes mellitus without complications
CPT/HCPCS: 36415; 71045; 80053; 80307; 81003; 84484; 85025; 93005; 94640; 96360; J7030; J7512; Z7502; 99284; J7620

== ENCOUNTER 2019-11-20 16:59 | Emergency (ER) | payer OTHER ==
[~2019-11-20] VITALS: Ht 167.6 cm; Wt 81.6 kg
[~2019-11-20 16:59] MED LIST changes: +NICOTINE PATCH1 EAC5 TD; +VENTOLIN HFA18 GM INH
--- NOTE | 2019-11-20 17:22 | NUR ---
ED Nurse Note: PT AMBULATED TO ED C/O BILATERAL TEMPORAL HEADACHE, BLURRED VISION, AND DIZZINESS, S/P "MASTERBATING EARLIER TODAY"
[2019-11-20 17:23] VITALS: BP 145/106
[2019-11-20] MEDS ORDERED: Ketorolac 30mg Inj IV ONE (17:30)
--- NOTE | 2019-11-20 17:48 | Diagnostic Imaging Report ---
Indications: Headaches and blurred vision Technique: Spiral acquisitions obtained through the brain. Angled axial and coronal 5 x 5 mm slices were reconstructed. Total dose length product 1066 mGycm. CTDI vol(s) 53 mGy. Dose reduction achieved using automated exposure control Comparison: 06/19/2011 Findings: Interim development of small lacunar infarcts in the genus of the internal capsules bilaterally. The ventricles and extra-axial CSF spaces are within normal limits, but are nonetheless slightly more prominent than demonstrated on the prior study. No acute intracranial hemorrhage or edema. No mass effect or midline shift. Normal kimball-white differentiation. The mastoids are clear. The visualized orbits and sinuses are unremarkable. 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 The CT scanner at [facility] is accredited by the [employer] and the scans are performed using protocols designed to limit radiation exposure to as low as reasonably achievable to attain images of sufficient resolution adequate for diagnostic evaluation.
--- NOTE | 2019-11-20 17:49 | NUR ---
ED Nurse Note: pt request rodney.
--- NOTE | 2019-11-20 17:57 | Emergency Room Report ---
History of Present Illness General Chief Complaint: Headache Source: Patient Present Illness HPI 39-year-old male with history of heavy tobacco smoker and asthma here complaining of sudden onset of a 10 out of 10 headache and feeling nauseated after masturbating high heart earlier today. Patient reports that he was at the urologist yesterday as it was recommended that few weeks ago and was prescribed new medication which he does not recall the name. However reports that they were antibiotics. Reports that he masturbates multiple times a day very hard. Patient denies any fall or injury. Denies any dizziness and blurry vision at this time. Has not taken medication for symptom relief. Denies chest pain, and no other associated symptoms. No slurred speech noted. No unilateral or generalized weakness noted. Patient is neurovascularly intact. Allergies: Coded Allergies: No Known Allergies (Unverified , 06/17/12) Nursing Documentation-[facility] Past Medical History: No History, Except For Hx Hypertension: Yes Hx Pacemaker: No Hx Asthma: Yes Hx COPD: No Hx Diabetes: Yes Hx Cancer: No Hx Gastrointestinal Problems: No Hx Dialysis: No History Of Psychiatric Problem: No Hx Neurological Problems: No Hx Cerebrovascular Accident: No Hx Seizures: No Review of Systems All Other Systems: negative except mentioned in HPI Physical Exam Vital Signs Date Time Temp Pulse Resp B/P (MAP) Pulse Ox O2 Delivery O2 Flow Rate FiO2 11/20/19 17:14 97.5 72 16 145/106 (119) 98 Room Air Sp02 EP Interpretation: reviewed, normal General Appearance: no apparent distress, alert, GCS 15, non-toxic Head: normocephalic, atraumatic Eyes: bilateral eye normal inspection, bilateral eye PERRL ENT: hearing grossly normal, normal pharynx, no angioedema, normal voice Neck: full range of motion, supple/symm/no masses Respiratory: chest non-tender, lungs clear, normal breath sounds, no rhonchi, no respiratory distress, no retraction, no wheezing, speaking full sentences Cardiovascular #1: regular rate, rhythm, no edema Gastrointestinal: normal bowel sounds, non tender, soft, non-distended, no guarding, no rebound Rectal: deferred Genitourinary: no CVA tenderness Musculoskeletal: back normal, normal range of motion, no calf tenderness, gait/ station normal, non-tender Neurologic: alert, motor strength/tone normal, oriented x3, sensory intact, responsive, speech normal Psychiatric: judgement/insight normal, memory normal, mood/affect normal, no suicidal/homicidal ideation Skin: no rash Lymphatic: no adenopathy Medical Decision Making PA Attestation All my diagnosis and treatment plans were reviewed ad discussed with my supervising physician Dr. Diego Diagnostic Impression: Primary Impression: Headache associated with sexual activity ER Course 39-year-old male with history of heavy tobacco smoker and asthma here complaining of sudden onset of a 10 out of 10 headache and feeling nauseated after masturbating high heart earlier today. Patient reports that he was at the urologist yesterday as it was recommended that few weeks ago and was prescribed new medication which he does not recall the name. However reports that they were antibiotics. Reports that he masturbates multiple times a day very hard. Patient denies any fall or injury. Denies any dizziness and blurry vision at this time. Has not taken medication for symptom relief. Denies chest pain, and no other associated symptoms. No slurred speech noted. No unilateral or generalized weakness noted. Patient is neurovascularly intact. Ddx considered but are not limited to: Migraine headache with aura, migraine headache without aura, tension headache, cluster headache, TBI, subarachnoid hemorrhage Vital signs: are WNL, pt. is afebrile H&PE are most consistent with: Headache associated with sexual activity ORDERS: Head CT no contrast patient reports pressure and pulling of blood in his head, and appears to be not a good historian, Motrin ER intervention: NS bolus, Zofran DISCHARGE: At this time pt. is stable for d/c to home. Will provide printed patient care instructions, and any necessary prescriptions. Care plan and follow up instructions have been discussed with the patient prior to discharge. Patient to follow-up primary care provider, take medication as directed, avoid hard masturbation multiple times a day. If worsening symptoms return to the emergency room CT/MRI/US Diagnostic Results CT/MRI/US Diagnostic Results : Imaging Test Ordered: Head CT no contrast Impression No intracranial bleed, no other abnormalities Last Vital Signs Date Time Temp Pulse Resp B/P (MAP) Pulse Ox O2 Delivery O2 Flow Rate FiO2 11/20/19 17:23 97.5 84 16 145/106 98 Room Air Status: improved Disposition: HOME, SELF-CARE Condition: Stable Scripts Ibuprofen* (MOTRIN*) 600 Mg Tablet 600 MG ORAL Q8H PRN for For Pain, #30 TAB 0 Refills Prov: Palomo Hansen 11/20/19 Patient Instructions: General Headache Without Cause Additional Instructions: Follow-up with your primary care provider, take medication as directed, if worsening symptoms return to the emergency room. Palomo Hansen Nov 20, 2019 17:57
[2019-11-20] MEDS ORDERED: IBUPROFEN600 MG ORAL (17:58)
[2019-11-20 18:25] VITALS: BP 133/98
== END 2019-11-20 18:25 | disposition home or self-care (01) ==
LOC: EMR 17:30
DX: G44.82 Headache associated with sexual activity (principal); J45.909 Unspecified asthma, uncomplicated; I10 Essential (primary) hypertension; E11.9 Type 2 diabetes mellitus without complications
CPT/HCPCS: 70450; 96361; 96374; 96375; J1885; J2405; J7030; Z7502; 99284

== ENCOUNTER 2020-01-23 14:39 | Emergency (ER) | payer OTHER ==
[~2020-01-23] VITALS: Ht 167.6 cm; Wt 86.2 kg
[2020-01-23 14:49] VITALS: BP 130/88
--- NOTE | 2020-01-23 14:49 | NUR ---
ED Nurse Note: Pt walked in to ED for C/O a "painful bump" on his anus x over 2 years. PT denies bleeding.
--- NOTE | 2020-01-23 15:08 | Emergency Room Report ---
History of Present Illness General Chief Complaint: Skin Rash/Abscess Source: Patient Present Illness HPI 40-year-old male presents to the emergency department complaining of a localized 5 out of 10 severity painful bump on his anus x2 years. Patient denies changes in character to his symptoms over the course of the 2 years. Patient believes he had acute onset after having anal penetration. Patient denies fevers, chills, discharge, erythema or progressive swelling. Patient reports that he presented to the ER today not because of changes in characteristics but because he wanted to "get to the bottom of this ". Patient states that his PCP has evaluated him and told him that it was nothing significant. Patient states he would like a second opinion. He denies additional trauma to the anus. Patient states he has not taken any medications or uqzi-rqq-xthitpn remedies for his symptoms. Denies any aggravating or relieving factors. Patient denies constipation or diarrhea. Denies hx of hemorrhoids. Denies bleeding. Denies blood in the stool or black tarry stools. Allergies: Coded Allergies: No Known Allergies (Unverified , 06/17/12) COVID-19 Screening Contact w/high risk pt: No Recent Travel to affected area: No Experienced COVID-19 symptoms?: No Patient History Past Medical History: psych hx Past Surgical History: none Pertinent Family History: none Reviewed Nursing Documentation: PMH: Agreed; PSxH: Agreed Nursing Documentation-PMH Hx Hypertension: Yes Hx Pacemaker: No Hx Asthma: Yes Hx COPD: No Hx Diabetes: Yes Hx Cancer: No Hx Gastrointestinal Problems: No Hx Dialysis: No Hx Neurological Problems: No Hx Cerebrovascular Accident: No Hx Seizures: No Review of Systems All Other Systems: negative except mentioned in HPI Physical Exam Vital Signs Date Time Temp Pulse Resp B/P (MAP) Pulse Ox O2 Delivery O2 Flow Rate FiO2 01/23/20 14:44 98.1 103 16 136/98 (111) 95 Room Air Sp02 EP Interpretation: reviewed, normal General Appearance: no apparent distress, alert, GCS 15, non-toxic Head: normocephalic, atraumatic Eyes: bilateral eye normal inspection, bilateral eye PERRL ENT: hearing grossly normal, normal voice Neck: full range of motion Respiratory: lungs clear, normal breath sounds, speaking full sentences Cardiovascular #1: regular rate, rhythm Gastrointestinal: non tender, soft Rectal: deferred, other - no hemorrhoid visible. small non-infected non erythematous sinus opening noted at the 12 o clock position adjacent to the anus. No palpable swelling or fluctuance. No D/c noted. Genitourinary: normal inspection Musculoskeletal: normal range of motion, gait/station normal, non-tender Neurologic: alert, motor strength/tone normal, oriented x3, sensory intact, responsive, speech normal Psychiatric: judgement/insight normal Skin: other - no hemorrhoid visible. small non-infected non erythematous sinus opening noted at the 12 o clock position adjacent to the anus. No palpable swelling or fluctuance. No D/c noted Medical Decision Making PA Attestation Dr. Samuels Is my supervising Physician whom patient management has been discussed with. Diagnostic Impression: Primary Impression: Anal irritation Additional Impression: Anal lesion ER Course 40-year-old male presents to the emergency department complaining of a localized 5 out of 10 severity painful bump on his anus x2 years. Patient denies changes in character to his symptoms over the course of the 2 years. Patient believes he had acute onset after having anal penetration. Patient denies fevers, chills, discharge, erythema or progressive swelling. Patient reports that he presented to the ER today not because of changes in characteristics but because he wanted to "get to the bottom of this ". Patient states that his PCP has evaluated him and told him that it was nothing significant. Patient states he would like a second opinion. He denies additional trauma to the anus. Patient states he has not taken any medications or zmis-ome-sceoqej remedies for his symptoms. Denies any aggravating or relieving factors. Patient denies constipation or diarrhea. Denies hx of hemorrhoids. Denies bleeding. Denies blood in the stool or black tarry stools. Ddx considered but are not limited to constipation , anal fissure, perianal abscess, rectal wall tear, thrombosed hemorrhoid, hemorrhoid. Vital signs: are WNL, pt. is afebrile H&PE are most consistent with non infected bertha-anal sinus tract opening. no obvious abscess noted. no palpable or visualized cyst at this time. ORDERS: non required at this time ED INTERVENTIONS: - Discussed the patient's self care interventions but ultimate definitive diagnosis and treatment should be determined by contract administration manager or GI specialist. -I do not identify an emergent condition at this time. With current presentation , pt. is stable for close outpatient follow up and conservative treatment. D/ w pt. to return promptly to ED with worsening or new symptoms.- Pt. verbalizes' understanding and agreement with proposed treatment plan. DISCHARGE: At this time pt. is stable for d/c to home. Will provide printed patient care instructions, and any necessary prescriptions. Care plan and follow up instructions have been discussed with the patient prior to discharge. Last Vital Signs Date Time Temp Pulse Resp B/P (MAP) Pulse Ox O2 Delivery O2 Flow Rate FiO2 01/23/20 14:49 98.0 83 17 130/88 96 Room Air Disposition: HOME, SELF-CARE Condition: Stable Referrals: [facility] + [facility] Patient Instructions: Medical Screening Exam Additional Instructions: Take medications as directed. Follow up with a GI SPECIALIST/ DERMATOLOGIST in 3-5 days, even if your symptoms have resolved. --Please review list of primary care clinics, if you do not already have a primary care provider Return sooner to ED if new symptoms occur, or current symptoms become worse. - Please note that this Emergency Department Report was dictated using [employer]quality assurance supervisor body technology software, occasionally this can lead to erroneous entry secondary to interpretation by the dictation equipment. Adrienne Jean Baptiste Jan 23, 2020 15:08
[2020-01-23 15:19] VITALS: BP 128/84
== END 2020-01-23 15:19 | disposition home or self-care (01) ==
LOC: EMR 15:10
DX: K62.9 Disease of anus and rectum, unspecified (principal); I10 Essential (primary) hypertension; E11.9 Type 2 diabetes mellitus without complications
CPT/HCPCS: 99283

== ENCOUNTER 2020-06-10 19:53 | Emergency (ER) | payer OTHER ==
[~2020-06-10] VITALS: Ht 167.6 cm; Wt 89.8 kg
[2020-06-10 20:20] VITALS: BP 138/90
--- NOTE | 2020-06-10 20:31 | Emergency Room Report ---
History of Present Illness General Chief Complaint: Sore Throat Source: Patient Present Illness HPI Patient is a 40-year-old male presents to the ER complaining of sore throat for the past 3 days. Patient also complains of generalized body aches. He denies any difficulty swallowing but complains of painful swallowing. She denies any drooling or changes to his voice. He denies any neck stiffness or rash. Patient denies any chest pain or shortness of breath. Patient has a history of recurrent pharyngitis. Patient denies any abdominal pain nausea or vomiting. Allergies: Coded Allergies: No Known Allergies (Unverified , 06/17/12) COVID-19 Screening Contact w/high risk pt: No Recent Travel to affected area: No Experienced COVID-19 symptoms?: Yes COVID-19 Testing performed NETWORK SECURITY ANALYST: No Patient History Reviewed Nursing Documentation: PMH: Agreed; PSxH: Agreed Nursing Documentation-PMH Hx Hypertension: Yes Hx Pacemaker: No Hx Asthma: Yes Hx COPD: No Hx Diabetes: Yes Hx Cancer: No Hx Gastrointestinal Problems: No Hx Dialysis: No Hx Neurological Problems: No Hx Cerebrovascular Accident: No Hx Seizures: No Review of Systems All Other Systems: negative except mentioned in HPI Physical Exam Vital Signs Date Time Temp Pulse Resp B/P (MAP) Pulse Ox O2 Delivery O2 Flow Rate FiO2 06/10/20 20:11 100.0 98 20 138/90 (106) 98 Room Air Sp02 EP Interpretation: reviewed, normal General Appearance: no apparent distress, alert, GCS 15, non-toxic Head: normocephalic, atraumatic Eyes: bilateral eye normal inspection, bilateral eye PERRL ENT: other - Tonsillar erythema with no swelling or tonsillar exudate, no peritonsillar abscess Neck: full range of motion, supple, no meningismus Respiratory: chest non-tender, lungs clear, normal breath sounds Cardiovascular #1: regular rate, rhythm Gastrointestinal: normal bowel sounds, non tender, soft, non-distended, no guarding, no rebound Rectal: deferred Musculoskeletal: normal range of motion Neurologic: go go dancer III-XII nml as tested, oriented x3 Psychiatric: no suicidal/homicidal ideation Skin: no rash Lymphatic: no adenopathy Medical Decision Making Diagnostic Impression: Primary Impression: Pharyngitis ER Course Patient has low-grade temp. Patient given Motrin. Patient has no intraoral swelling, neck stiffness, rash, difficulty swallowing, drooling or changes in voice. COVID-19 PCR negative. Patient given a prescription for azithromycin. After discussing risks and benefits of further diagnostics, treatment plans, as well as indications for and risks of admission, the patient is agreeable to being discharged home. I have explained that their evaluation and treatment in the emergency department today is an important step towards them achieving [facility] but that their evaluation today is not intended to replace further evaluation and treatment by a physician in their local clinic. I have explained that while the current findings suggest no immediate life threatening emergency they will require further evaluation and treatment by a physician of their choice in their area. They understand that it will be necessary for them to review the final reports of their ED visit with their clinic physician. We have reviewed indications for return to the Emergency Department. I have explained that additional time may need to pass and/or additional testing as an outpatient may be necessary before a definitive diagnosis can be made. They tell me they are willing to follow up as instructed within the timeframe I recommend. They appear to understand what we discussed. Additionally they understand that if they are unable to be seen by an outpatient physician they are welcome, and in fact should, return to the Emergency Department for a repeat evaluation. The patient is stable at time of discharge. Microbiology Date/Time Source Procedure Growth Status 06/10/20 20:30 Nasopharynx SARS-CoV-2 RdRp Gene Assay - Final Complete Last Vital Signs Date Time Temp Pulse Resp B/P (MAP) Pulse Ox O2 Delivery O2 Flow Rate FiO2 06/10/20 20:20 100.0 98 20 138/90 98 Room Air Disposition: HOME, SELF-CARE Condition: Stable Scripts Azithromycin* (ZITHROMAX*) 250 Mg Tablet 250 MG ORAL DAILY, #6 TAB 0 Refills Take two tables once daily for 1 day, then one tablet once daily for 4 days. Prov: Dulce Duval M.D. 06/10/20 Additional Instructions: The patient was provided with discharge instructions, notified to follow-up with a primary care doctor and or specialist in the next 24-48 hours, and to return to the ED if they have worsening of their symptoms. Please note that this report is being documented using [employer] technology. This can lead to erroneous entry secondary to incorrect interpretation by the dictating instrument. Dulce Duval M.D. Jun 10, 2020 20:31
[2020-06-10 21:00] VITALS: BP 136/78
[2020-06-10] MEDS ORDERED: ZITHROMAX250 MG ORAL (21:25)
== END 2020-06-10 21:15 | disposition home or self-care (01) ==
LOC: EMR 21:09
DX: J02.9 Acute pharyngitis, unspecified (principal); I10 Essential (primary) hypertension; E11.9 Type 2 diabetes mellitus without complications
CPT/HCPCS: U0002; Z7502; 99282

== ENCOUNTER 2020-06-11 19:16 | Emergency (ER) | payer OTHER ==
[~2020-06-11] VITALS: Ht 167.6 cm; Wt 89.8 kg
[2020-06-11 19:35] VITALS: BP 124/87
[2020-06-11] MEDS ORDERED: Lidocaine 1% MPF 10mg/ml 5ml INJ ONE (19:45)
--- NOTE | 2020-06-11 19:49 | Emergency Room Report ---
History of Present Illness General Chief Complaint: Sore Throat Present Illness HPI 40-year-old male with history of asthma who was seen at [facility] yesterday for sore throat and given azithromycin is back here today having concerns for maybe the sore throat being secondary to STD. Patient reports that he was last sexually active 3 weeks ago. Denies any penile discharge or swelling in the scrotum. Denies any urinary symptoms. Denies fever and chills, cough or congestion, shortness of breath. Oxygen saturation is 93% however can be secondary to asthma. Has started taking azithromycin as of yesterday. Patient was tested for covert yesterday and was negative. Denies abdominal pain, nausea vomiting diarrhea. Complains of generalized body aches. Is requesting to be treated for chlamydia and gonorrhea in general. Allergies: Coded Allergies: No Known Allergies (Unverified , 06/17/12) COVID-19 Screening Contact w/high risk pt: No Recent Travel to affected area: No Experienced COVID-19 symptoms?: Yes COVID-19 Testing performed INORGANIC CHEMICAL TECHNICIAN: Yes COVID-19 Screening: Negative COVID-19 COVID-19 Testing Source: Nasopharyngeal Patient History Past Medical History: see triage record Past Surgical History: none Pertinent Family History: none Immunizations: UTD Reviewed Nursing Documentation: PMH: Agreed; PSxH: Agreed Nursing Documentation-PMH Hx Cardiac Problems: Yes - HLD Hx Hypertension: Yes Hx Pacemaker: No Hx Asthma: Yes Hx COPD: No Hx Diabetes: Yes Hx Cancer: No Hx Gastrointestinal Problems: No Hx Dialysis: No History Of Psychiatric Problem: Yes - Bipolar schiz Hx Neurological Problems: No Hx Cerebrovascular Accident: No Hx Seizures: No Review of Systems All Other Systems: negative except mentioned in HPI Physical Exam Vital Signs Date Time Temp Pulse Resp B/P (MAP) Pulse Ox O2 Delivery O2 Flow Rate FiO2 06/11/20 19:24 99.9 111 18 124/87 (99) 93 Room Air Sp02 EP Interpretation: reviewed, normal General Appearance: no apparent distress, alert, GCS 15, non-toxic Head: normocephalic, atraumatic Eyes: bilateral eye normal inspection, bilateral eye PERRL ENT: EOM grossly intact, no angioedema, normal voice, pharyngeal erythema Neck: full range of motion, supple, supple/symm/no masses Respiratory: chest non-tender, lungs clear, normal breath sounds, speaking full sentences Cardiovascular #1: regular rate, rhythm, no edema Gastrointestinal: normal bowel sounds, non tender, soft, non-distended, no guarding, no rebound Rectal: deferred Genitourinary: no CVA tenderness Musculoskeletal: back normal Neurologic: alert, motor strength/tone normal, oriented x3, sensory intact, responsive, speech normal Psychiatric: judgement/insight normal, memory normal, mood/affect normal, no suicidal/homicidal ideation Skin: no rash Lymphatic: no adenopathy Medical Decision Making PA Attestation All my diagnosis and treatment plans were reviewed ad discussed with my supervising physician Dr. Aguilar Diagnostic Impression: Primary Impression: Pharyngitis Additional Impression: Concern about STD in male without diagnosis ER Course 40-year-old male with history of asthma who was seen at [place] [facility] yesterday for sore throat and given azithromycin is back here today having concerns for maybe the sore throat being secondary to STD. Patient reports that he was last sexually active 3 weeks ago. Denies any penile discharge or swelling in the scrotum. Denies any urinary symptoms. Denies fever and chills, cough or congestion, shortness of breath. Oxygen saturation is 93% however can be secondary to asthma. Has started taking azithromycin as of yesterday. Patient was tested for covert yesterday and was negative. Denies abdominal pain, nausea vomiting diarrhea. Complains of generalized body aches. Is requesting to be treated for chlamydia and gonorrhea in general. Ddx considered but are not limited to: strep pharyngitis, URI, tonsillitis, peritonsillar abscess, influneza Vital signs: are WNL, pt. is afebrile H&PE are most consistent with: pharyngitis, STD exposure ORDERS: CXR ED INTERVENTIONS:Rocephin IM DISCHARGE: At this time pt. is stable for d/c to home. Will provide printed patient care instructions, and any necessary prescriptions. Care plan and follow up instructions have been discussed with the patient prior to discharge. Patient take medication as directed, continue taking azithromycin, follow primary care provider, if worsening symptom return to the emergency room. I also told patient that he is on the correct medication for pharyngitis even if he is concerned about having STD inside his mouth. Chest X-Ray Diagnostic Results Chest X-Ray Diagnostic Results : Chest X-Ray Ordered: Yes # of Views/Limited/Complete: 1 View Indication: Other EP Interpretation: Yes RIVERA Xray: Interpretation reviewed, by supervising MD, and agrees with findings. Interpretation: no consolidation, no effusion, no pneumothorax Impression: No acute disease Electronically Signed by: Palomo Ramirez PA-C Last Vital Signs Date Time Temp Pulse Resp B/P (MAP) Pulse Ox O2 Delivery O2 Flow Rate FiO2 06/11/20 19:24 99.9 111 18 124/87 (99) 93 Room Air Disposition: HOME, SELF-CARE Condition: Stable Patient Instructions: Pharyngitis, [id number] Additional Instructions: Take medication as directed, follow primary care provider, increase oral hydration, if worsening symptoms return to the emergency room Palomo Hansen Jun 11, 2020 19:49
[2020-06-11 20:08] VITALS: BP 125/95
--- NOTE | 2020-06-12 11:50 | Diagnostic Imaging Report ---
Procedure: XRAY Chest 1v Reason for study: Reason For Exam: SOB Comparison films: 11/15/2019. FINDINGS: A single one view chest is obtained. Vascularity is normal. The lung mitchell are clear bilaterally. Cardiac and mediastinal silhouette are within normal limits. CP angles are sharp. The bony thorax appear unremarkable. IMPRESSION: NO ACUTE CARDIOPULMONARY DISEASE.
== END 2020-06-11 20:08 | disposition home or self-care (01) ==
LOC: EMR 19:48
DX: J02.9 Acute pharyngitis, unspecified (principal); J45.909 Unspecified asthma, uncomplicated; I10 Essential (primary) hypertension; E78.5 Hyperlipidemia, unspecified; E11.9 Type 2 diabetes mellitus without complications; Z79.51 Long term (current) use of inhaled steroids; Z79.899 Other long term (current) drug therapy
CPT/HCPCS: 71045; 96372; 96374; J0696; Z7502; 99284